=== PATIENT | male | born 2000 | race Caucasian/White ===

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

== ENCOUNTER → 2023-10-09 | Outpatient (REF) | payer OTHER ==
[~2023-10-09] MED LIST: BCP PO; MEDR4PAK PO
[2023-10-09 16:59] LABS: GC DNA AMPLIFICATION NEGATIVE (NEGATIVE)
== END ==
LOC: M LAB REF 15:07
PROVIDERS: ATTEND Registered Nurse
DX: Z11.3 Encounter for screening for infections with a predominantly sexual mode of transmission (principal)

== ENCOUNTER → 2023-10-14 | Outpatient (REF) | payer OTHER ==
[2023-10-14 21:08] LABS: BASO % 0.7 % (0.0-1.0); EOS % 0.7 % (0.0-3.0); HEMATOCRIT 37.6 % (42.0-52.0); HEMOGLOBIN 12.5 g/dl (13.5-17.5); LYMPH # 1.9 10^3/uL (1.5-5.0); LYMPH % 31.4 % (24.0-44.0); MEAN CORPUSCULAR HEMOGLOBIN 30.4 pg (27.0-33.0); MEAN CORPUSCULAR HGB CONC 33.2 g/dl (32.0-36.5); MEAN CORPUSCULAR VOLUME 91.5 fl (80.0-96.0); MONO # 0.5 10^3/uL (0.0-0.8); MONO % 8.8 % (2.0-8.0); NEUTROPHILS # 3.5 10^3/uL (1.5-8.5); NEUTROPHILS % 58.1 % (36.0-66.0); PLATELET COUNT, AUTOMATED 234 10^3/uL (150-450); RED BLOOD COUNT 4.11 10^6/uL (4.30-6.10)
[2023-10-14 21:14] LABS: ALBUMIN 4.1 G/DL (3.2-5.2); ALKALINE PHOSPHATASE 52 U/L (46-116); ALT/SGPT 9 U/L (7.0-40); AST/SGOT 13 U/L (<34); BILIRUBIN,TOTAL 0.9 MG/DL (0.3-1.2); BLOOD UREA NITROGEN 12 MG/DL (9-23); CALCIUM LEVEL 9.2 MG/DL (8.5-10.1); CARBON DIOXIDE LEVEL 27 MMOL/L (20-31); CHLORIDE LEVEL 103 MMOL/L (98-107); CREATININE FOR GFR 0.65 MG/DL (0.70-1.30); GLOMERULAR FILTRATION RATE > 60.0 (>60); GLUCOSE, FASTING 123 MG/DL (60-100); POTASSIUM SERUM 3.5 MMOL/L (3.5-5.1); SODIUM LEVEL 137 MMOL/L (136-145); TOTAL PROTEIN 6.9 G/DL (5.7-8.2)
[2023-10-14 21:16] LABS: FREE T4 1.12 NG/DL (0.89-1.76); THYROID STIMULATING HORMONE 0.747 uIU/ML (0.55-4.78)
[2023-10-15 05:13] LABS: HEMOGLOBIN A1c 5.3 % (4.0-6.0)
== END ==
LOC: M LABWUC 20:11
PROVIDERS: ATTEND Registered Nurse
DX: R42 Dizziness and giddiness (principal)

== ENCOUNTER 2024-04-25 17:02 | Emergency (ER) | payer OTHER ==
[~2024-04-25] VITALS: Ht 157.5 cm; Wt 38.6 kg
[2024-04-25] MEDS ORDERED: LISD20TA (17:28)
[2024-04-25] MEDS ORDERED: DEXTROAMP-AMPHETAMIN (17:28)
[2024-04-25] MEDS ORDERED: VIEN1TAB (17:28)
[2024-04-25 23:30] VITALS: BP 111/75; TEMP 97.5; O2SAT 100
[2024-04-25] MEDS: LIDOCAINE 1% MDV 20ML VIAL SC ONE (23:41)
[2024-04-25] MEDS ORDERED: CEPH500C PO (23:56)
== END 2024-04-26 00:05 | disposition home or self-care (01) ==
LOC: M ED 17:02 → EDSEX 17:02 → M ED 04-26 00:05
DX: S61.011A Laceration without foreign body of right thumb without damage to nail, initial encounter (principal); Y92.019 Unspecified place in single-family (private) house as the place of occurrence of the external cause; Y93.9 Activity, unspecified; Y99.9 Unspecified external cause status; Z79.2 Long term (current) use of antibiotics; Z79.899 Other long term (current) drug therapy

== ENCOUNTER 2025-06-22 09:39 | Emergency (ER) | payer OTHER ==
[~2025-06-22] VITALS: Ht 162.6 cm; Wt 49.1 kg
[~2025-06-22 09:39] MED LIST changes: +CEPH500C PO; +DEXTROAMP-AMPHETAMIN; +LISD20TA; +VIEN1TAB
[2025-06-22] MEDS ORDERED: IBUP200C28 PO (09:48)
[2025-06-22 11:51] LABS: BASO # 0.0 10^3/uL (0.0-0.2); BASO % 0.7 % (0.0-1.0); EOS # 0.0 10^3/uL (0.0-0.5); EOS % 0.7 % (0.0-3.0); LYMPH # 1.3 10^3/uL (1.5-5.0); LYMPH % 24.1 % (24.0-44.0); MONO # 0.7 10^3/uL (0.0-0.8); MONO % 12.8 % (2.0-8.0); NEUTROPHILS # 3.3 10^3/uL (1.5-8.5); NEUTROPHILS % 61.2 % (36.0-66.0); PLATELET COUNT, AUTOMATED 268 10^3/uL (150-450)
[2025-06-22 12:27] LABS: CALCIUM LEVEL 9.5 MG/DL (8.5-10.1); CARBON DIOXIDE LEVEL 25 MMOL/L (20-31); CHLORIDE LEVEL 106 MMOL/L (98-107); CREATININE FOR GFR 0.64 MG/DL (0.55-1.30); GLOMERULAR FILTRATION RATE > 90.0 (>60); POTASSIUM SERUM 4.0 MMOL/L (3.5-5.1); SODIUM LEVEL 142 MMOL/L (136-145)
[2025-06-22 12:28] LABS: HCG, SERUM QUALITATIVE NEGATIVE (NEGATIVE)
[2025-06-22 12:30] LABS: FREE T4 1.36 NG/DL (0.89-1.76)
[2025-06-22 13:31] LABS: CK-MB VALUE MASS < 1.0 NG/ML (<3.6)
[2025-06-22 13:32] LABS: CPK CREATINE PHOSPHOKINASE 105 U/L (34-145)
[2025-06-22 13:55] VITALS: TEMP 99
[2025-06-22] MEDS: PANTOPRAZOLE 40MG VIAL IV ONE (14:31)
[2025-06-22 15:24] VITALS: O2SAT 98
[2025-06-22 15:30] VITALS: BP 127/79
== END 2025-06-22 16:05 | disposition home or self-care (01) ==
LOC: M ED 09:39
DX: R07.9 Chest pain, unspecified (principal); F17.290 Nicotine dependence, other tobacco product, uncomplicated
CPT/HCPCS: 71045; 80048; 82550; 82553; 84439; 84443; 84484; 84703; 85025; 93005; 96374; 99285; J2470

== ENCOUNTER → 2025-07-02 | Outpatient (REF) | payer OTHER ==
[~2025-07-02] MED LIST changes: +IBUP200C28 PO
== END ==
LOC: M LAB REF 15:31
PROVIDERS: ATTEND Registered Nurse
DX: R19.7 Diarrhea, unspecified (principal)